=== PATIENT | female | born 1970 ===

== ENCOUNTER 2020-10-21 11:00 | Day surgery (SDC) | payer OTHER | END 2020-10-21 15:40 | disposition home or self-care (01) | LOC: AMB-ENDOS 11:00 | PROVIDERS: ATTEND Colon & Rectal Surgery | DX: K57.32 Diverticulitis of large intestine without perforation or abscess without bleeding (principal); K64.0 First degree hemorrhoids; Z20.828 Contact with and (suspected) exposure to other viral communicable diseases ==

== ENCOUNTER 2020-12-20 11:45 | Inpatient (IN) | payer OTHER ==
[~2020-12-20] VITALS: Ht 162.6 cm; Wt 108.9 kg
[2020-12-20] MEDS ORDERED: LOPRESSOR HCT1 EACH PO (15:06)
[2020-12-20] MEDS ORDERED: ZESTRIL40 M1 PO (15:07)
== END 2020-12-30 18:46 | disposition home or self-care (01) | DRG 331 ==
LOC: SURH 12-26 11:45 → O/R 12-27 06:52 → SURH 12-27 06:52
PROVIDERS: ADMIT Colon & Rectal Surgery; ATTEND Colon & Rectal Surgery
PROC: 0DTP4ZZ Resection of Rectum, Percutaneous Endoscopic Approach (ICD-10-PCS; 2020-12-27)
PROC: 0DJD8ZZ Inspection of Lower Intestinal Tract, Via Natural or Artificial Opening Endoscopic (ICD-10-PCS; 2020-12-27)
PROC: 0DBN4ZZ Excision of Sigmoid Colon, Percutaneous Endoscopic Approach (ICD-10-PCS; principal; 2020-12-27 16:45)
DX: K57.32 Diverticulitis of large intestine without perforation or abscess without bleeding (principal); I10 Essential (primary) hypertension; K57.30 Diverticulosis of large intestine without perforation or abscess without bleeding